=== PATIENT | female | born 1985 | race Caucasian/White ===

== ENCOUNTER 2018-03-13 11:03 | Emergency (ER) | payer MEDICAID, OTHER ==
[~2018-03-13] VITALS: Ht 167.6 cm; Wt 95.5 kg
[~2018-03-13 11:03] MED LIST: PREN1TAB22 PO
[2018-03-13 13:39] VITALS: BP 126/79
== END 2018-03-13 13:53 | disposition home or self-care (01) ==
LOC: EMS 11:04
DX: S93.602A Unspecified sprain of left foot, initial encounter (principal); X50.9XXA Other and unspecified overexertion or strenuous movements or postures, initial encounter; Y93.89 Activity, other specified; Y92.89 Other specified places as the place of occurrence of the external cause; Y99.8 Other external cause status; R03.0 Elevated blood-pressure reading, without diagnosis of hypertension
CPT/HCPCS: 29515; 99284

== ENCOUNTER 2021-10-28 07:56 | Emergency (ER) | payer OTHER ==
[~2021-10-28] VITALS: Ht 165.1 cm; Wt 72.7 kg
[2021-10-28 08:30] VITALS: BP 146/88
[2021-10-28 09:55] LABS: APPEARANCE,URINE CLOUDY (CLEAR); BILIRUBIN,URINE NEGATIVE (NEGATIVE); GLUCOSE, URINE (UA) NEGATIVE (NEGATIVE); KETONES,URINE NEGATIVE (NEGATIVE); LEUKOCYTE ESTERASE ,URINE MODERATE (NEGATIVE); NITRATE,URINE NEGATIVE (NEGATIVE); OCCULT BLOOD,URINE LARGE (NEGATIVE); PROTEIN,URINE POS 1+ (NEGATIVE); UROBILINOGEN,URINE 0.2 mg/dL (<=1.0)
[2021-10-28 10:00] LABS: BACTERIA,URINE Many /HPF (None Seen); RBC,URINE >100 /HPF (0-2); WBC,URINE 26-50 /HPF (0-5)
[2021-10-28 10:01] LABS: SQUAMOUS EPITHELIAL CELL,UR Moderate /LPF (None Seen)
[2021-10-28] MEDS ORDERED: NITR100C4 PO (11:26)
[2021-10-28] MEDS ORDERED: PHEN-1103 PO (11:26)
== END 2021-10-28 11:53 | disposition home or self-care (01) ==
LOC: EMS 08:01
DX: N39.0 Urinary tract infection, site not specified (principal)
CPT/HCPCS: 81001; 84703; 99283

== ENCOUNTER 2022-10-11 19:26 | Emergency (ER) | payer OTHER ==
[~2022-10-11] VITALS: Ht 167.6 cm; Wt 91.0 kg
[~2022-10-11 19:26] MED LIST changes: +NITR100C4 PO; +PHEN-674 PO; -PREN1TAB22 PO
[2022-10-11 19:49] LABS: APPEARANCE,URINE HAZY (CLEAR); BILIRUBIN,URINE NEGATIVE (NEGATIVE); GLUCOSE, URINE (UA) NEGATIVE (NEGATIVE); KETONES,URINE NEGATIVE (NEGATIVE); LEUKOCYTE ESTERASE ,URINE LARGE (NEGATIVE); NITRATE,URINE NEGATIVE (NEGATIVE); OCCULT BLOOD,URINE LARGE (NEGATIVE); PROTEIN,URINE 30-70 mg/dL (NEGATIVE); SPECIFIC GRAVITIY, URINE 1.026 (1.003-1.030); UROBILINOGEN,URINE <=1.0 mg/dL (<=1.0)
[2022-10-11 19:56] LABS: BACTERIA,URINE Rare /HPF (None Seen)
[2022-10-11 19:57] LABS: SQUAMOUS EPITHELIAL CELL,UR Few /LPF (None Seen)
[2022-10-11 20:01] VITALS: BP 126/67
[2022-10-11] MEDS ORDERED: CEPH-558 PO (20:51)
[2022-10-11] MEDS ORDERED: CEPHALEXIN MONOHYDRATE 500 MG CAPSULE PO ONE (21:00)
== END 2022-10-11 21:16 | disposition home or self-care (01) ==
LOC: EMS 19:53
DX: N39.0 Urinary tract infection, site not specified (principal); F17.210 Nicotine dependence, cigarettes, uncomplicated; Z98.890 Other specified postprocedural states
CPT/HCPCS: 81001; 84703; 87086; 87186; 99283